=== PATIENT | male | born 1970 | race Caucasian/White ===

== ENCOUNTER 2016-07-18 15:30 | Emergency (ER) | payer SELFPAY ==
[~2016-07-18] VITALS: Ht 175.3 cm; Wt 53.5 kg
[2016-07-18 15:33] VITALS: TEMP 36.8; Ht 175.3 cm; Wt 53.5 kg
--- NOTE | 2016-07-18 15:54 | EMERGENCY ROOM VISIT NOTE ---
ED Visit Note First contact with patient: 15:39 CHIEF COMPLAINT: Elbow pain HISTORY OF PRESENT ILLNESS: This 45-year-old male patient presents to the emergency department ambulatory for evaluation of right arm pain after a fall. The patient reports that he fell off a trailer and landed onto his right arm. He reports the fall was mechanical in nature. He reports pain of the right elbow and wrist. He reports that the rest of the arm is numb. He rates his discomfort an 8/10. He has not taken any medication at home. He denies any previous injuries to the elbow or wrist. He denies any other injuries. He did not hit his head. REVIEW OF SYSTEMS: A 6 system review of systems was completed with positives and pertinent negatives listed in the HPI. ALLERGIES: No known drug allergies MEDICATIONS: No chronic medications PMH: No significant past medical history. SOCIAL HISTORY: The patient lives locally with family. Nonsmoker, denies alcohol use. PHYSICAL EXAM: Vital Signs: Reviewed Nurse's notes, vital signs stable. GENERAL : This is a 45-year-old male, in no acute distress, well-developed, well- nourished. SKIN: The skin was without rashes, erythema, edema, warmth, or bruising. Capillary reflex less than 3 seconds. MUSCULOSKELETAL: There are no deformities of the right arm. There is tenderness over the right radial head. There is mild tenderness over the ventral aspect of the right wrist. No stuff box tenderness. There is no tenderness of the shoulder or humerus. Full range of motion of the right arm. [employer] strength 5/5. Radial pulse 2+. NEURO: Patient was alert and oriented to person place and time. Normal sensation to light and sharp touch. RADIOGRAPHIC FINDINGS: RIGHT ELBOW MIN 3 VIEWS ROUTINE DISCUSSION: The bones and joint spaces appear intact. There is no evidence of fracture, dislocation or bony disease. There is no evidence for soft tissue swelling. IMPRESSION: Negative study. RIGHT WRIST W/NAVICULAR MIN 3 VIEWS DISCUSSION: The bones and joint spaces appear intact. There is no evidence of fracture, dislocation or bony disease. There is no evidence for soft tissue swelling. IMPRESSION: Negative study. EMERGENCY DEPARTMENT COURSE: I examined the patient. X-rays of the right elbow and wrist were obtained and read by radiology with no acute findings. The patient was offered a sling and declined. Conservative measures were discussed. He will follow up with primary care provider or orthopedics if there is persistent pain in 5-6 days. He verbalized understanding of my assessment and treatment plan. The patient was discharged home in stable condition. DIAGNOSIS: Right arm contusion Current/Historical Medications No Active Prescriptions or Reported Meds Allergies Coded Allergies: No Known Allergies (Unverified , 07/18/16) Vital Signs Date Time Temp Pulse Resp B/P Pulse Ox O2 Delivery O2 Flow Rate FiO2 07/18/16 15:33 36.8 66 18 144/79 98 Room Air Departure Information Impression Primary Impression: Contusion of right arm Dispostion Home / Self-Care Condition GOOD Prescriptions No Active Prescriptions or Reported Meds Referrals No Doctor, Assigned (PCP) Patient Instructions My [facility] Additional Instructions For pain control, you can use the following [id number] medicines (if >12 yo): - Regular strength (325mg/tab) Tylenol (acetaminophen) 2 tabs every 4-6 hours as needed. Do not exceed 12 tablets in a 24 hour period. Avoid taking more than 4 grams (4000 mg) of Tylenol per day. This includes any other sources of acetaminophen you may take on a regular basis. - Regular strength (200 mg/tab) Advil (ibuprofen) 1-2 tabs every 4-6 hours as needed. Do not exceed a dose of 3200 mg per day. Ice as needed for pain. Follow-up with your primary care provider or orthopedics if you have persistent pain in the arm in 5-6 days. Return to the emergency department as needed for worsening or new/concerning symptoms. Problem Qualifiers Primary Impression: Contusion of right arm Encounter type: initial encounter Qualified Codes: S40.021A - Contusion of right upper arm, initial encounter
--- NOTE | 2016-07-18 16:13 | DIAGNOSTIC IMAGING REPORT ---
RIGHT ELBOW MIN 3 VIEWS ROUTINE CLINICAL HISTORY: fall, right elbow pain Right trauma. Pain. COMPARISON: None. DISCUSSION: The bones and joint spaces appear intact. There is no evidence of fracture, dislocation or bony disease. There is no evidence for soft tissue swelling. IMPRESSION: Negative study. Electronically signed by: Cong Garcia M.D. 07/18/2016 4:11 PM Dictated Date/Time: 07/18/2016 4:11 PM
--- NOTE | 2016-07-18 16:18 | DIAGNOSTIC IMAGING REPORT ---
RIGHT WRIST W/NAVICULAR MIN 3 VIEWS CLINICAL HISTORY: fall, right wrist pain Right trauma. Pain. COMPARISON: None. DISCUSSION: The bones and joint spaces appear intact. There is no evidence of fracture, dislocation or bony disease. There is no evidence for soft tissue swelling. IMPRESSION: Negative study. Electronically signed by: Cong Garcia M.D. 07/18/2016 4:16 PM Dictated Date/Time: 07/18/2016 4:15 PM
[2016-07-18 17:05] VITALS: BP 135/75; PULSE 66; O2SAT 98
== END 2016-07-18 17:07 | disposition home or self-care (01) ==
LOC: C.EDB 15:31 → C.EDD 17:07
DX: S40.021A Contusion of right upper arm, initial encounter (principal); W17.89XA Other fall from one level to another, initial encounter